=== PATIENT | male | born 1975 | race Caucasian/White ===

== ENCOUNTER 2024-04-07 22:24 | Emergency (ER) | payer MEDICAID, SELFPAY ==
[2024-04-07] VITALS (11 sets, daily range): BP systolic 86–128; BP diastolic 51–77; PULSE 102–119; RESP 19–27; TEMP 37.3; O2SAT 93–98
--- NOTE | ~2024-04-07 | XR_ITS ---
Portable chest x-ray Comparison: 09/29/2015 Clinical History: Shortness of breath Findings: There is central congestive change and probable minimal bibasilar pulmonary edema. Right-s ided central venous line in place. Cardiomediastinal silhouette is stable. Bones and soft tissues ar e unremarkable. Impression: Central congestive change and minimal bibasilar pulmonary edema. Right-sided central venous line. Reviewed, dictated and finalized at location M. Impression: Central congestive change and minimal bibasilar pulmonary edema. Right-sided central venous line.
--- NOTE | 2024-04-07 22:38 | ECG_ITS ---
Test Date: 2024-04-07 23:05:36 Measurements Intervals [place] Rate: 106 P: 61 GA: 146 QRS: 52 QRSD: 122 T: 34 QT: 337 QTc: 448 Interpretive Statements SINUS TACHYCARDIA OTHERWISE NORMAL ECG No previous ECG available for comparison Electronically Signed On 04-08-2024 09:08:14 CDT by Diego Riggs M.D.
[2024-04-07] MEDS: SODIUM CHLORIDE 0.9% IV 1,000 ML 500 ML IV CONT (23:03)
[2024-04-07 23:09] LABS: Hematocrit 21.4 % (40.0-54.0); Hemoglobin 7.8 g/dL (14.0-18.0); Immature Platelet Fraction Pct 0.2 % (1.0-7.0); Mean Corpuscular HGB Conc 36.4 g/dL (32-36); Mean Corpuscular Volume 84.9 fL (78.0-102.0); Red Blood Count 2.52 M/mm3 (4.70-6.10); Red Cell Distribution Width 15.2 % (11.6-14.4)
[2024-04-07 23:13] LABS: Platelet Count Result 9 K/mm3 (150-420)
[2024-04-07 23:17] LABS: Alanine Aminotransferase 25 U/L (16-63); Albumin Level 2.3 g/dL (3.4-5.0); Alkaline Phosphatase 106 U/L (46-116); Anion Gap 10 mmol/L (4-12); Aspartate Amino Transferase 14 U/L (15-37); Bilirubin,Total 1.3 mg/dL (0.00-1.00); Blood Urea Nitrogen 10 mg/dL (7-18); Calcium 8.7 mg/dL (8.5-10.1); Carbon Dioxide 27 mmol/L (21-32); Chloride 95 mmol/L (98-108); Estimated CRCL calculation 103 ml/min; Estimated Glomerular Filt Rate > 60; Glucose 103 mg/dL (70-99); Osmolality Calculated 273 mOsm/kg (285-295); Potassium 3.1 mmol/L (3.5-5.1); Sodium 132 mmol/L (136-145); Total Protein 6.3 g/dL (6.4-8.2)
--- NOTE | 2024-04-07 23:22 | PC.NURSE ---
POC discussed w/ pt to transfer back to [facility]. DR Fallon wanting pt to receive platelets. Per lab, this is special order from [facility] and not available at this time. ERP informed.
[2024-04-08] VITALS (27 sets, daily range): BP systolic 81–105; BP diastolic 47–67; PULSE 91–114; RESP 13–37; TEMP 37.3; O2SAT 96–100
[2024-04-08] MEDS: CEFEPIME 2 GM/NS 50 ML 2 GM/50 ML BAG IVPB (00:23)
[2024-04-08 00:42] LABS: Add Urine Microscopic? YES; Appearance Urine Clear (Clear); Bilirubin Urine Negative (Negative); Blood Urine Negative (Negative); Color Urine Yellow (Yellow); Glucose Urine UA Negative (Negative); Ketones Urine Negative (Negative); Leukocyte Esterase Ur Negative LEU/UL (Negative); Nitrate Urine Negative (Negative); Protein Urine 1+ (Negative)
[2024-04-08 00:55] LABS: Mucus Urine Heavy /lpf
[2024-04-08] MEDS: KCL 20 MEQ/SW 100 ML 100 ML 50 MEQ IVPB (00:59)
[2024-04-08] MEDS: VANCOMYCIN 1,250 MG/NS 250 ML 1,250 MG/250 ML BAG 166.67 MG IVPB ×2 (01:00→02:37)
[2024-04-08] MEDS: SODIUM CHLORIDE 0.9% IV 1,000 ML 500 ML IV CONT (01:29)
[2024-04-08 01:53] LABS: Lactate Dehydrogenase 148 U/L (85-227); Uric Acid 3.4 mg/dL (3.5-7.2)
[2024-04-08 02:07] LABS: INR 1.2; Prothrombin Time 12.8 Seconds (9.50-12.1)
--- NOTE | 2024-04-08 02:13 | PC.NURSE ---
[facility] called back and [facility] stated they are working on getting bed and pt placed for transfer, she will call back as soon as a bed is avaialble. Pt sleeping, VSS at this time, continuing to monitor, NSR on monitor.
--- NOTE | 2024-04-08 02:19 | ED.GENADULT ---
HPI - General Adult General Chief complaint: Shortness of Breath/Dyspnea Stated complaint: cant catch breath Time Seen by Provider: 04/07/24 22:32 History of Present Illness HPI narrative: Patient with the history of AML. Follows with Hematology-Oncology at [facility]. he reports he is currently in a consolidation phase of chemotherapy. Was actually seen on the preceding day 04/06/2024 received a blood transfusion and platelet transfusion. On the morning of 04 07 2024 the patient woke up feeling short of breath. he attempted to carry about his day but shortness of breath became too severe so he presented to the emergency department. Patient is on oral vancomycin for C diff prophylaxis po levofloxacillin for bacterial prophylaxis as well as valacyclovir for HSV prophylaxis and posaconazole 4 fungal infection prophylaxis. Denies fever, chills, rigors, nausea, vomiting, diarrhea.? he has some chest heaviness with these inspiration but denies chest pain. Related Data Home Medications Medication Instructions Recorded Confirmed folic acid 1 mg tablet 1 mg PO DAILY 04/07/24 04/07/24 levofloxacin 500 mg tablet 500 mg PO DAILY 04/07/24 04/07/24 ondansetron 4 mg disintegrating 4 mg PO Q6H PRN Nausea And Vomiting 04/07/24 04/07/24 tablet posaconazole 100 mg tablet,delayed 300 mg PO DAILY 04/07/24 04/07/24 release (Noxafil) potassium chloride 10 mEq 40 meq PO DAILY 04/07/24 04/07/24 capsule,extended release vancomycin 125 mg capsule 125 mg PO DIRECTED 04/07/24 04/07/24 Allergies Allergy/AdvReac Type Severity Reaction Status Date / Time No Known Allergies Verified 11/04/09 15:12 Exam Narrative: GEN: Awake, alert, and appropriate to situation. Appears uncomfortable. pale HEENT: No rhinorrhea noted, mucous membranes moist. No scleral icterus or conjunctival injection. CV: Normal rate, regular rhythm, S1S2 no M/G/R. 2+ distal pulses all extremities. No peripheral edema noted. PULM: slightly elevated respiratory rate. Clear to auscultation bilaterally. No wheezes, rales, rhonchi. GI: Abdomen soft, non -tender to palpation. No rigidity, distention or guarding.? NEURO: Normal speech. No lateralizing or focal deficits noted. chest x-ray does not show any overt infiltrate or effusion Course Vital Signs Vital signs: Vital Signs Temperature 37.3 C 04/07/24 22:25 Pulse Rate 119 H 04/07/24 22:25 Respiratory Rate 20 04/07/24 22:25 Blood Pressure 128/77 04/07/24 22:25 Pulse Oximetry 94 04/07/24 22:25 Oxygen Delivery Room Air 04/07/24 22:25 Temperature 37.3 C 04/07/24 22:25 Pulse Rate 96 04/08/24 02:01 Respiratory Rate 28 H 04/08/24 02:01 Blood Pressure 99/64 L 04/08/24 02:01 Pulse Oximetry 98 04/08/24 02:01 Oxygen Delivery Room Air 04/07/24 23:31 Medical Decision Making MDM Narrative Medical decision making narrative: Patient was placed in Room #:?2 Independent Historian: none External Source Review: none Differential diagnosis includes but not limited to:? acute pancytopenia secondary to chemotherapy, Severe neutropenia. Medications were Reviewed: home medications Independently Interpreted by me: chest x-ray, EKG Medications, treatment, ED course: lab work and chemistry, chest x-ray, EKG, fluid bolus, broad-spectrum antibiotics Social situation impacting patients care: patient lives independently with the Community appear that his daughter granddaughter was with him time of his arrival. Shared decision making:? patient is amenable to transport to [facility] Accepting physician: Dr. Ryan DISCHARGE DIAGNOSIS: AML, acute pancytopenia, severe neutropenia DISPOSITION: transfer to [facility] CONDITION AT DISCHARGE:? stable Vital Signs Vital Signs: Vital Signs Temperature 37.3 C 04/07/24 22:25 Pulse Rate 119 H 04/07/24 22:25 Respiratory Rate 20 04/07/24 22:25 Blood Pressure 128/77 04/07/24 22:25 Pulse Oxime
--- NOTE | 2024-04-08 03:54 | PC.NURSE ---
[facility]ini at [facility] called w/ bed for pt. He will go to [facility] Rm 716 bed 1.
--- NOTE | 2024-04-08 04:05 | PC.NURSE ---
Report given to Freida Alvarez at [facility].
--- NOTE | 2024-04-09 12:45 | PC.NURSE ---
Addendum entered by Allison Jade RN 04/09/24 12:46: X2 BLOOD CULTURE PRELIMINARY RESULTS: NO GROWTH TO DATE Original Note: PRELIMINARY BLOOD CULTURE RESULT: NO GROWTH TO DATE
[2024-04-09 17:38] LABS: Fibrinogen 817 mg/dL (175-425)
== END 2024-04-08 04:43 | disposition short-term general hospital (02) ==
PROVIDERS: Emergency Provider Family Medicine; PCP Family Medicine
DX: D61.818 Other pancytopenia (principal); Z79.899 Other long term (current) drug therapy
CPT/HCPCS: 36415; 71045; 80053; 81001; 83615; 84550; 85027; 85055; 85384; 85610; 87040; 93005; 96361; 96365; 96366; 96367; 96368; 99285; J0692; J3370; J3480; J7030